=== PATIENT | female | born 1985 | race African-American/Black ===

== ENCOUNTER 2017-10-26 19:51 | Inpatient (IN) | payer OTHER ==
[2017-10-26] MEDS: ELECTROLYTE-148 SOLN 1,000 ML IV SCH (21:00)
[2017-10-26 21:20] LABS: BASO % 0.2 % (0-2.0); EOS % 0.3 % (0-4.5); HEMATOCRIT 35.2 % (32.4-45.2); HEMOGLOBIN 11.7 GM/dL (10.7-15.3); LYMPH % 28.3 % (8-40); MCH 30.5 pg (25.7-33.7); MCHC 33.1 g/dl (32.0-36.0); MEAN CELL VOLUME 92.3 fl (80-96); MEAN PLT VOLUME 10.6 fl (7.5-11.1); MONO % 5.6 % (3.8-10.2); NEUT % 65.6 % (42.8-82.8); PLATELET COUNT 190 K/MM3 (134-434); RBC 3.82 M/mm3 (3.60-5.2); RDW 14.3 % (11.6-15.6); WHITE BLOOD COUNT 8.7 K/mm3 (4.0-10.0)
[2017-10-26 21:21] LABS: URINE APPEARANCE CLEAR; URINE BILIRUBIN NEGATIVE (NEGATIVE); URINE BLOOD NEGATIVE (NEGATIVE); URINE COLOR STRAW; URINE GLUCOSE (UA) NEGATIVE (NEGATIVE); URINE KETONE NEGATIVE (NEGATIVE); URINE LEUK ESTERASE NEGATIVE (NEGATIVE); URINE NITRITE NEGATIVE (NEGATIVE); URINE PROTEIN NEGATIVE (NEGATIVE); URINE UROBILINOGEN NEGATIVE mg/dL (0.2-1.0)
[2017-10-26 21:30] VITALS: BMI 31.4
[2017-10-26 21:37] LABS: INR 0.95 (0.82-1.09); PROTHROMBIN TIME (PATIENT) 10.7 SEC (9.98-11.88)
[2017-10-26 21:40] LABS: ACTIVATED PTT 19.2 SECONDS (26.9-34.4)
[2017-10-26] MEDS ORDERED: DINOPROSTONE 10 MG VAGINAL SUPPOSITORY VG ONE (22:00)
[2017-10-26 22:19] LABS: ALBUMIN 2.8 g/dl (3.4-5.0); ANION GAP 11 (8-16); BILIRUBIN,TOTAL 0.1 mg/dL (0.2-1.0); BLOOD UREA NITROGEN 7 mg/dL (7-18); CALCIUM 8.3 mg/dL (8.5-10.1); CHLORIDE 108 mmol/L (98-107); CO2 23 mmol/L (21-32); CREATININE 0.7 mg/dL (0.55-1.02); GLUCOSE,RANDOM 91 mg/dL (74-106); POTASSIUM 3.6 mmol/L (3.5-5.1); SGOT/AST 13 U/L (15-37); SGPT/ALT 16 U/L (12-78); SODIUM 142 mmol/L (136-145); TOT PROT 6.3 g/dl (6.4-8.2); URIC ACID 4.1 mg/dL (2.6-7.2)
[2017-10-26 22:20] LABS: ALK PHOS 181 U/L (45-117)
--- NOTE | 2017-10-26 22:46 | HP ---
Past Medical History - Primary Care Physician PCP:: Moisés Otto - Admission Chief Complaint: 32yo P0 with at EGA 39w5d admitted for labor induction due to oligohydramnios. History of Present Illness: Fibroids 9-10cm cm and 3 cm Graves Dz Zika travel- in [place] (2x this ) History Source: Patient, Medical Record Limitations to Obtaining History: No Limitations - Past Medical History FARM GENERAL MANAGER: No: Alzheimer's, CVA, Dementia, Migraine, Multiple Sclerosis, Peripheral Neuropathy, Parkinson's, Seizure, Syncope, TIA, Vertigo, Other Cardiovascular: No: AFIB, Aneurysm, Aortic Insufficiency, Aortic Stenosis, CAD, CHF, Deep Vein Thrombosis, HTN, Hyperlipdemia, [place], Mitral Insufficiency, Mitral Stenosis, Murmur, Pulmonary Hypertension, Other Pulmonary: No: Asthma, Bronchitis, Cancer, COPD, O2 Dependent, Pneumonia, Previously Intubated, Pulmonary Embolus, Pulmonary Fibrosis, Sleep Apnea, Other Gastrointestinal: No: Ascites, Cancer, Constipation, Crohn's Disease, Diverticulitis, Diverticulosis, Esophageal Varices, Gastritis, GERD, GI Bleed, Hemorrhoids, Hiatal Hernia, Inflamatory Bowel Disease, Irritable Bowel Disease, Pancreatitis, Peptic Ulcer Disease, Ulcerative Colitis, Other Hepatobiliary: No: Cirrhosis, Cholelithiasis, Cholecystitis, Choledocholithiasis , Hepatitis A, Hepatitis B, Hepatitis C, Other Renal/: No: Renal Failure, Renal Inusuff, BPH, Cancer, Hematuria, Hemodialysis , Neurogenic Bladder, Renal Calculi, UTI, Other Reproductive: Yes: Fibroids (VERY LARGE) ...: 1 ...Para: 0 ...Term: 0 ...: 0 ...Spon : 0 ...Induced : 0 ...Multiple Gestation: 0 ...LMP: 01/27/17 ... Weeks Gestation by Dates: 38.6 ...EDC by Dates: 11/03/17 ...EDC by Sono: 10/28/17 Heme/Onc: No: Anemia, B12 Deficiency, Bleeding Disorder, Cancer, Current Chemotherapy, Current Radiation Therapy, Hemochromatosis, Hypercoaguable State, Myeloproliferative Synd, Sickle Cell Disease, Sickle Cell Trait, Thrombocytopenia, Other Infectious Disease: No: AIDS, C-Diff, Herpes Zoster, HIV, MRSA, STD's, Tuberculosis, VREF, Other Psych: No: Addictions, Anxiety, Bipolar, Depression, Panic, Psychosis, Schizophrenia, Other Musculoskeletal: No: Bursitis, Chronic low back pain, Hemiparesis, Hemiplegia, Osteoarthritis, Paraplegia, Other Rheumatology: No: Fibromyalgia, Gout, Lupus, Rheumatoid Arthritis, Sarcoidosis, Vasculitis, Other ENT: No: Allergic Rhinitis, Sinusitis, Other Endocrine: Yes: Hyperthyroidism (Graves Dz) Dermatology: No: Basal Cell, Cellulitis, Eczema, Melanoma, Psoriasis, Squamous Cell, Other - Past Surgical History Past Surgical History: Yes: None Hx Myomectomy: No Hx Transabdominal Cerclage: No - Smoking History Smoking history: Never smoked Have you smoked in the past 12 months: No - Alcohol/Substance Use Hx Alcohol Use: No History of Substance Use: reports: None - Social History ADL: Independent History of Recent Travel: No Home Medications - Allergies Allergies/Adverse Reactions: Allergies Allergy/AdvReac Type Severity Reaction Status Date / Time No Known Allergies Allergy Verified 10/26/17 20:46 - Home Medications Home Medications: Ambulatory Orders Saul/D3/Mag11/Zinc/Metal Bonding Crib Attendant/Sudhir/Bor [Caltrate 600+D Plus Tablet] 1 each PO DAILY Vitamins (Sjr) - 1 tab PO DAILY 10/26/17 Family Disease History - Family Disease History Family Disease History: Heart Disease: Father, Other: Mother (HTN) Review of Systems - Review of Systems Constitutional: reports: No Symptoms Eyes: reports: No Symptoms HENT: reports: No Symptoms Neck: reports: No Symptoms Cardiovascular: reports: No Symptoms Respiratory: reports: No Symptoms Gastrointestinal: reports: No Symptoms Genitourinary: reports: No Symptoms Breasts: reports: No Symptoms Reported Musculoskeletal: reports: No Symptoms Integumentary: reports: No Symptoms Neurological: reports: No Symptoms Endocrine: reports: No Symptoms Hematology/Lymphatic: reports: No Symptoms Psychiatric: reports: No Symptoms Pain Intensity: 0 Physical Exam - Maternity Vital Signs: Vital Signs Temperature 98.3 F 10/26/17 22:00 Pulse Rate 94 H 10/26/17 22:00 Respiratory Rate 20 10/26/17 22:00 Blood Pressure 132/83 10/26/17 22:00 O2 Sat by Pulse Oximetry (%) Constitutional: Yes: Well Nourished, No Distress, Calm Eyes: Yes: WNL, Conjunctiva Clear HENT: Yes: WNL, Atraumatic, Normocephalic Neck: Yes: WNL, Supple, Trachea Midline Cardiovascular: Yes: WNL, Regular Rate and Rhythm Lungs: Clear to auscultation, Normal air movement Breast(s): Yes: WNL - Abdominal Exam/OB Fundal Height: 40 Number of Fetuses: Single Presentation: Vertex Contractions: Yes Regularity: Irregular Intensity: Unaware Monitor Mode: External Heart Rate (range): 135 Heart Rate Location: Midline Category: I Accelerations: Uniform Decelerations: None - Vaginal Exam/OB Vaginal Bleediing: No Speculum Exam: No Dilatation (cm): 0 Effacement (%): 0 Amniotic Membrane Status: Intact Presentation: Vertex/Position Station: -4 - Physical Exam Musculoskeletal: Yes: WNL Extremities: Yes: WNL Edema: No Integumentary: Yes: WNL Deep Tendon Reflex Grade: Normal +2 ...Motor Strength: WNL Psychiatric: Yes: WNL, Alert, Oriented - Labs Lab Results: CBC, BMP 10/26/17 21:05 10/26/17 21:05 Hemorrhage Risk Assessment - Risk Factors Medium Risk Factors: Yes: Large myomas High Risk Factors: Yes: None Risk Score: 1 Risk Level: Medium Risk Imaging - Results Ultrasound: Report Reviewed Assessment/Plan 32yo P0 with at EGA 39w5d admitted for labor induction. Pt is not in labor. Fetus with Category I tracing. Adequate gynecoid pelvimetry on exam. We had land discussion re: risks, benefits, and alternatives of labor induction. I explained the options of expectant management awaiting spontaneous labor, induction of labor, and elective section. The risks of uterine tachysystole, distress, uterine rupture, need for emergency C/S, hemorrhage, infection, scarring, etc. were discussed. Much higher risks of C/S, hemorrhage, hysterectomy, dustress, etc due to very large fibroids were explained. We also discussed the risks of meconium aspiration, shoulder dystocia , and anesthesia options. The pt requested to proceed with induction. We discussed the alternative methods of induction with Cervidil, Cytotec, Folley ballon, and pitocin. The pt prefers Cervidil followed by pitocin, if needed.
[2017-10-27] MEDS: ELECTROLYTE-148 SOLN 1,000 ML IV SCH ×2 (02:25→10:06)
[2017-10-27] MEDS ORDERED: OXYTOCIN 15 UNITS/ LR 250 ML 15 UNIT/250 ML INFUS.BAG IVPB ONE (09:35)
[2017-10-27] MEDS ORDERED: OXYTOCIN 30 UNITS in 0.9% NS 30 UNIT/500 ML INFUS.BAG IVPB SCH (10:00)
--- NOTE | 2017-10-27 14:54 | PN ---
Ante-Partal Exam - Subjective Subjective: Patient reports pain, pressure with contractions Vital Signs: Vital Signs Temperature 98.9 F 10/27/17 10:00 Pulse Rate 91 H 10/27/17 13:00 Respiratory Rate 18 10/27/17 13:00 Blood Pressure 141/85 10/27/17 13:00 O2 Sat by Pulse Oximetry (%) Bleeding: No Headache: No Visual changes: No Right upper quadrant pain: No - Contractions Contractions: Yes Regularity: Regular Intensity: Mod/Strong Monitor Mode: External - Exam during Labor Heart Rate: 120 Variability: Moderate Category: I Monitor Accelerations: Present Monitor Decelerations: None Exam: Vaginal Dilatation (cm): 0 Effacement (%): long Amniotic Membrane Status: Intact Station: -4 - Intrapartum Hemorrhage Risk Medium Risk Factors: None High Risk Factors: None Risk Score: 0 Risk Level: Low Risk - Assessment/Plan Assessment/Plan: 32 yo IOL, oligohydramnios 1. Currently on pitocin of 7, yocasta 2-3 minutes apart. No cervical change , no change in station. Reviewed options of continuing with pitocin or primary delivery. Patient desires to continue with induction 2. GBS positive 3. Desires IV medication for pain control 4. Will continue expectant management
[2017-10-27] MEDS ORDERED: PROMETHAZINE HCL 25 MG/1 ML VIAL IVPB ONE (15:00)
[2017-10-27] MEDS ORDERED: PROMETHAZINE HCL 25 MG/1 ML VIAL IVPUSH ONE (15:00)
[2017-10-27] MEDS ORDERED: BUTORPHANOL TARTRATE 1 MG/ML VIAL IVPB ONE (15:00)
[2017-10-27] MEDS ORDERED: ONDANSETRON 4 MG/2 ML VIAL IVPUSH PRN (17:08)
[2017-10-27] MEDS ORDERED: morphine SULFATE/Preservative Free 0.5 MG/ML (1cc Syringe) ONE (17:36)
--- NOTE | 2017-10-27 17:41 | PN ---
Progress Note (short form) - Note Progress Note: Patient examined, found to be closed / long / high Reviewed unchanged exam over 8 hours and on pitocin without any change. Patient requested delivery via delivery. Discussed risks including but not limited to infection, bleeding requiring transfusion and damage to surrounding organs such as the bowel or bladder. Discussed risk of injury to infant. Discussed risk of wound infection and separation. Discussed need for planning of future children and possibility of abnormal placentation. All questions answered. Patient expressed understanding. Nursing and OR staff notified. Will proceed to OR
[2017-10-27] MEDS ORDERED: CITRIC ACID/SODIUM CITRATE 30 ML UNIT-DOSE CUP PO ONE (17:45)
[2017-10-27] MEDS ORDERED: ePHEDrine SULFATE 50 MG/1 ML AMPULE ONE (17:55)
[2017-10-27] MEDS ORDERED: PHENYLEPHRINE HCL 10 MG/1 ML SINGLE DOSE VIAL ONE (17:56)
[2017-10-27] MEDS ORDERED: SODIUM CHLORIDE 0.9% P/F 10 ML VIAL IJ ONE (17:57)
[2017-10-27] MEDS ORDERED: ceFAZolin SODIUM 1 GM VIAL ONE (17:57)
[2017-10-27] MEDS ORDERED: KETOROLAC TROMETHAMINE 30 MG/1 ML VIAL ONE (18:00)
[2017-10-27] MEDS: DEXTROSE 5%-LACTATED RINGERS 1,000 ML IV SCH (18:29)
[2017-10-27] MEDS ORDERED: BENZOCAINE 28 GM HEMORRHOIDAL OINTMENT TP PRN (19:36)
[2017-10-27] MEDS ORDERED: WITCH HAZEL 50% (TUCKS) 40 PAD/JAR PAD TP PRN (19:36)
[2017-10-27] MEDS ORDERED: oxyCODONE HCL 5 MG TABLET PO PRN ×2 (19:36)
[2017-10-27] MEDS ORDERED: IBUPROFEN 800 MG/8 ML IJ IVPB PRN (19:36)
[2017-10-27] MEDS ORDERED: SENNOSIDES/DOCUSATE COMBO (SENNA PLUS) TABLET (UD) PO PRN (19:36)
[2017-10-27] MEDS ORDERED: BENZOCAINE 20% 57 GM BOTTLE TP PRN (19:36)
[2017-10-27] MEDS ORDERED: METHYLERGONOVINE MALEATE 0.2 MG/1 ML AMP IM PRN (19:36)
--- NOTE | 2017-10-27 19:36 | PN ---
Delivery - Delivery Type of Anesthesia: Spinal Episiotomy/Laceration: None EBL (cc): 600 Delivery, Single - Stages of Labor Date 1st Stage Initiatied: 10/27/17 Time 1st Stage Initiated: 14:00 Date of Delivery: 10/27/17 Time of Delivery: 18:13 Time Placenta Delivered: 18:14 - Condition of Compliance Associate/Extrusion Process Operator Present: Yes Name: Danielle Corbin Gender: Male Weight: 7 lb 2 oz Position: Right, OT Total Hours ROM (Hrs/Mins): 2 min - 1 Minute Total Score: 9 5 Minutes Total Score: 9 - Feeding Plan Initial Plan: Elected not to breastfeed exclusively throughout hospitalization Remarks - Remarks Remarks: Surgeon: Jackson Assist: Kati Anesthesia: Kishore Findings: Male , ROT position, 9,9; wt 7 lb 2 oz; Large subserosal anterior fibroid, 10 cm; normal fallopian tubes and ovary bilaterally IVF: 700 UOP: 150 Dictation: [id number]
[2017-10-27] MEDS: OXYTOCIN 20 UNITS in 0.9% NS 20 UNIT/1,000 ML INFUS.BAG IV SCH (19:58)
[2017-10-27] MEDS ORDERED: OXYTOCIN 20 UNITS in 0.9% NS 20 UNIT/1,000 ML INFUS.BAG IV ONE (20:14)
[2017-10-27] MEDS: FERROUS SO4 325 MG TABLET (FP) PO SCH (22:00)
[2017-10-28] MEDS: ELECTROLYTE-148 SOLN 1,000 ML IV SCH (03:38)
[2017-10-28] MEDS: DEXTROSE 5%-LACTATED RINGERS 1,000 ML IV SCH (03:39)
[2017-10-28] MEDS: OXYTOCIN 20 UNITS in 0.9% NS 20 UNIT/1,000 ML INFUS.BAG IV SCH (03:51)
--- NOTE | 2017-10-28 07:16 | PN ---
Post Progress Note - Subjective Subjective: Patient without acute complaints. Currently NPO No voiding, fragoso in place draining clear fluid No ambulation or flatus yet. Denies fevers or chills. Pain well controlled. Type of Delivery: Primary C/S Vital Signs: Vital Signs Temperature 98.6 F 10/28/17 06:00 Pulse Rate 98 H 10/28/17 06:00 Respiratory Rate 18 10/28/17 06:00 Blood Pressure 125/73 10/28/17 06:00 O2 Sat by Pulse Oximetry (%) 100 10/27/17 19:52 Breast Exam: Yes: Engorged Uterus: Yes: Fundus Firm, Fundus below umbilicus Incision: Yes: Dressing dry and intact. No: Oozing Abdomen/GI: Yes: Abdomen soft, Tender (mild incisional), Passing flatus, Tolerating PO. No: Abdominal Distention Lochia: Yes: Serosa Extremities: Yes: Calves non-tender - Labs Labs: CBC WBC 8.7 K/mm3 (4.0-10.0) 10/26/17 21:05 RBC 3.82 M/mm3 (3.60-5.2) 10/26/17 21:05 Hgb 11.7 GM/dL (10.7-15.3) 10/26/17 21:05 Hct 35.2 % (32.4-45.2) 10/26/17 21:05 MCV 92.3 fl (80-96) 10/26/17 21:05 MCH 30.5 pg (25.7-33.7) 10/26/17 21:05 MCHC 33.1 g/dl (32.0-36.0) 10/26/17 21:05 RDW 14.3 % (11.6-15.6) 10/26/17 21:05 Plt Count 190 K/MM3 (134-434) 10/26/17 21:05 MPV 10.6 fl (7.5-11.1) 10/26/17 21:05 Neutrophils % 65.6 % (42.8-82.8) 10/26/17 21:05 Lymphocytes % 28.3 % (8-40) 10/26/17 21:05 Monocytes % 5.6 % (3.8-10.2) 10/26/17 21:05 Eosinophils % 0.3 % (0-4.5) 10/26/17 21:05 Basophils % 0.2 % (0-2.0) 10/26/17 21:05 Assessment/Plan 32 yo POD # 1 s/p primary CD, afebrile, vital signs stable, doing well 1. Continue routine postoperative care. 2. Follow up AM CBC 3. Rh positive status, no rhogam indicated. 4. Encourage ambulation and incentive spirometer use 5. Continue oral pain medication 6. Anticipate discharge home postoperative day #3 or #4
[2017-10-28 07:49] LABS: BASO % 0.2 % (0-2.0); EOS % 0.2 % (0-4.5); HEMATOCRIT 33.7 % (32.4-45.2); LYMPH % 18.9 % (8-40); MCH 30.3 pg (25.7-33.7); MCHC 32.7 g/dl (32.0-36.0); MEAN CELL VOLUME 92.8 fl (80-96); MONO % 6.9 % (3.8-10.2); NEUT % 73.8 % (42.8-82.8); PLATELET COUNT 155 K/MM3 (134-434); RBC 3.63 M/mm3 (3.60-5.2); RDW 14.4 % (11.6-15.6); WHITE BLOOD COUNT 9.4 K/mm3 (4.0-10.0)
--- NOTE | 2017-10-28 08:28 | OP ---
DATE OF OPERATION: 10/27/2017 PREOPERATIVE DIAGNOSIS: Intrauterine at 39 weeks, admitted for oligohydramnios, induction of labor, failed induction of labor, fibroid uterus. POSTOPERATIVE DIAGNOSIS: Intrauterine at 39 weeks, admitted for oligohydramnios, induction of labor, failed induction of labor, fibroid uterus. SURGEON: Anaid Paz MD HOSTESS CASHIER: Lesly Parikh MD ANESTHESIOLOGIST: Migue Novak MD ANESTHESIA: Spinal. FINDINGS: A male in ROT position, Apgars 9 and 9, weight 7 pounds 2 pounds. A large subserosal anterior fibroid, approximately 10 cm. Normal fallopian tubes and ovaries bilaterally. INTRAVENOUS FLUIDS GIVEN: 700 mL. URINE OUTPUT: 150 ESTIMATED BLOOD LOSS: 600 INDICATIONS: The patient is a 32-year-old 1, para 0, at 39 weeks, admitted for induction of labor for oligohydramnios. She is status post Cervidil and Pitocin. She was found to be long, closed, posterior for approximately 6 hours after induction of labor, and she requested a primary . She was counseled regarding the risks, benefits, alternatives and complications of the procedure, including infection, bleeding, damage to surrounding organs, such as bowel, bladder and ureter. She expressed understanding and was brought to the operating room. DESCRIPTION OF PROCEDURE: When anesthesia was found to be adequate, the patient was prepped and draped in the normal sterile fashion and placed in the dorsal supine position with a leftward tilt. An approximately 11-cm skin incision was made with a knife and carried down to the underlying rectus muscle using Bovie electrocautery. The fascia was nicked in the midline and extended laterally using Gallegos scissors. The inferior portion of the fascial incision was tented up using Raymundo clamps and resected underlying rectus muscles using the Gallegos scissors. Attention was brought to the superior portion where in a similar fashion it was tented up using Raymundo clamps and dissected off the underlying rectus muscles. The rectus muscles were separate bluntly in the midline. The peritoneum was entered sharply and extended superiorly and inferiorly using Metzenbaum scissors. The uterus was found to be dextrorotated. It was corrected and the vesicouterine peritoneum was identified, entered sharply, and a bladder flap was created digitally. A hysterotomy was performed and extended laterally using bandage scissors. The infant's head was brought to the hysterotomy site. Amniotomy was performed. Clear fluid was noted. The infant's head was brought to hysterotomy site and was delivered, followed by shoulders and body without difficulty. The cord was clamped and cut, and the infant was handed to awaiting NICU staff. The placenta was extracted. The uterus was cleared of all clot and debris. The uterus was closed using 0 Biosyn in running layers; the second was an imbricating layer. It was noted that there was a right extension of the right aspect of the hysterotomy extended was extended. Examination of the uterus revealed a large subserosal anterior fundal fibroid and bilateral tubes and ovaries were noted to be hemostatic. The vesicouterine peritoneum was reapproximated using 0 Biosyn in running fashion. The peritoneum was closed using 2-0 Biosyn in running fashion. The muscles were reapproximated using 0 Vicryl in interrupted fashion. The fascia was closed using 0 Vicryl in a running fashion. The skin was reapproximated using 3-0 Biosyn. The patient tolerated the procedure well. Estimated blood loss was 600 mL. The patient was brought to the recovery room in stable condition. Aline [id number]
[2017-10-28] MEDS: FERROUS SO4 325 MG TABLET (FP) PO SCH ×2 (09:15→21:12)
[2017-10-28] MEDS: ENOXAPARIN NA (PORCINE) 40 MG/0.4 ML DISP.SYRIN SQ SCH (09:16)
--- NOTE | 2017-10-28 12:08 | PN ---
Progress Note (short form) - Note Progress Note: Pt day #1 s/p csection. Doing well, no complaints today. Continue current treatment
[2017-10-28] MEDS: SIMETHICONE 80 MG TAB.CHEW (FP) PO PRN (14:49)
[2017-10-28] MEDS: IBUPROFEN 600 MG TABLET (FP) PO PRN (14:49)
[2017-10-28] MEDS: ACETAMINOPHEN 325 MG TABLET (FP) PO PRN (14:49)
[2017-10-28] MEDS ORDERED: BISACODYL 10 MG SUPP.RECT RC PRN (19:36)
[2017-10-29] MEDS: SIMETHICONE 80 MG TAB.CHEW (FP) PO PRN ×2 (02:45→13:10)
[2017-10-29] MEDS: IBUPROFEN 600 MG TABLET (FP) PO PRN ×2 (02:45→13:11)
[2017-10-29] MEDS: ACETAMINOPHEN 325 MG TABLET (FP) PO PRN ×2 (02:52→13:10)
--- NOTE | 2017-10-29 07:46 | PN ---
Progress Note (short form) - Note Progress Note: pod 2 s/p c/s ,doing well, ambulating CBC, BMP 10/28/17 06:56 10/26/17 21:05 Last Vital Signs Temp Pulse Resp BP Pulse Ox 98.4 F 100 H 18 121/70 100 10/28/17 22:00 10/28/17 22:00 10/28/17 22:00 10/28/17 22:00 10/27/17 19:52 abdomen soft, no distension, no cva incision dry, clean no calf tenderness plan ambulate cbc in am
[2017-10-29] MEDS: FERROUS SO4 325 MG TABLET (FP) PO SCH ×2 (09:09→23:03)
[2017-10-29] MEDS: ENOXAPARIN NA (PORCINE) 40 MG/0.4 ML DISP.SYRIN SQ SCH (09:09)
[2017-10-30] MEDS: SIMETHICONE 80 MG TAB.CHEW (FP) PO PRN (02:06)
[2017-10-30] MEDS: IBUPROFEN 600 MG TABLET (FP) PO PRN (02:06)
[2017-10-30] MEDS: ACETAMINOPHEN 325 MG TABLET (FP) PO PRN (02:06)
[2017-10-30 08:58] LABS: BASO % 0.1 % (0-2.0); EOS % 0.8 % (0-4.5); HEMATOCRIT 32.3 % (32.4-45.2); HEMOGLOBIN 10.5 GM/dL (10.7-15.3); LYMPH % 25.6 % (8-40); MCH 30.3 pg (25.7-33.7); MCHC 32.6 g/dl (32.0-36.0); MEAN CELL VOLUME 93.1 fl (80-96); MEAN PLT VOLUME 9.8 fl (7.5-11.1); MONO % 5.5 % (3.8-10.2); PLATELET COUNT 195 K/MM3 (134-434); RBC 3.47 M/mm3 (3.60-5.2); RDW 14.4 % (11.6-15.6); WHITE BLOOD COUNT 8.6 K/mm3 (4.0-10.0)
[2017-10-30] MEDS: FERROUS SO4 325 MG TABLET (FP) PO SCH (09:22)
[2017-10-30] MEDS: ENOXAPARIN NA (PORCINE) 40 MG/0.4 ML DISP.SYRIN SQ SCH (09:22)
--- NOTE | 2017-10-30 11:03 | DS ---
Physical Exam-INSIDE SALES TERRITORY MANAGER Vital Signs: Vital Signs Temperature 99 F 10/30/17 05:39 Pulse Rate 102 H 10/30/17 05:39 Respiratory Rate 20 10/30/17 05:39 Blood Pressure 122/77 10/30/17 05:39 O2 Sat by Pulse Oximetry (%) 100 10/27/17 19:52 Constitutional: Yes: Well Nourished, No Distress, Calm Eyes: Yes: WNL, Conjunctiva Clear HENT: Yes: WNL, Atraumatic, Normocephalic Neck: Yes: WNL, Supple, Trachea Midline Cardiovascular: Yes: WNL, Regular Rate and Rhythm Respiratory: Yes: WNL, Regular, CTA Bilaterally Gastrointestinal: Yes: WNL, Normal Bowel Sounds, Soft ...Rectal Exam: Yes: Deferred Renal/: Yes: WNL ....Post : Yes: Uterus firm, Uterus non-tender, Slight lochia rubra Breast(s): Yes: WNL Musculoskeletal: Yes: WNL Extremities: Yes: WNL Edema: Yes Edema: LLE: Trace, RLE: Trace Integumentary: Yes: WNL Wound/Incision: Yes: Clean/Dry, Well Approximated, Sutures Intact, Steri Strips , Open to air Neurological: Yes: WNL, Alert, Oriented ...Motor Strength: WNL Psychiatric: Yes: WNL, Alert, Oriented Labs: CBC, BMP 10/30/17 08:00 10/26/17 21:05 Delivery - Delivery Section: Primary, Low Flap Transverse Type of Anesthesia: Spinal Episiotomy/Laceration: None EBL (cc): 600 Delivery, Single - Stages of Labor Date 1st Stage Initiatied: 10/27/17 Time 1st Stage Initiated: 14:00 Date of Delivery: 10/27/17 Time of Delivery: 18:13 Time Placenta Delivered: 18:14 Placenta: Yes: Manual Removal, Normal Configuration - Condition of Infant Harness Installer/Business Operations Analyst Present: Yes Name: Danielle Corbin Infant Gender: Male Weight: 3.232 kg Position: Right, OT Total Hours ROM (Hrs/Mins): 2 min - 1 Minute Total Score: 9 5 Minutes Total Score: 9 - Feeding Plan Initial Plan: Elected not to breastfeed exclusively throughout hospitalization Benefits of Exclusively reinforced: Yes Remarks - Remarks Remarks: Large subserosal fibroid Discharge Summary Reason For Visit: CEVIDIL INDUCTION Uterine fibroid Oligohydramnios Failed induction of labor Procedures: Principal: Primary LT C/S Condition: Good - Instructions Diet, Activity, Other Instructions: Physical activity Resume your normal everyday activity as tolerated no heavy lifting or exercise until seen by your surgeon. You may walk unlimited johnnie of and climb stairs. You may resume driving the car when you feel safe and comfortable behind the wheel. No sexual activity as instructed. Wound care If you have a bandage, leave it on, and keep dry for 48-72 hours. After that time discard the outer bandage. If they are tapes on the skin under the out of bandage leave them in place. They will peel off in the next 7 to 10 days. Do Not Peel them off. You may shower the day after surgery. If there are tapes present on the skin, you may shower over them. Diet There are no dietary restrictions. Eat healthy, high-fiber foods. Drink 6 to 8 glasses of liquid each day. This will assist in keeping your bowels are regular. Pain management You may take Tylenol or acetaminophen or Ibuprofen (for example, Motrin, Advil etc.) from my pain prescription medication is ordered should be taken as prescribed for moderate to severe pain. Call MD for any of the following: Severe pain not relieved by medication Fever of 101 or higher Excessive bleeding or drainage on dressing Inability to urinate Referrals: Anaid Paz MD [Staff Physician] - Disposition: HOME - Home Medications Comprehensive Discharge Medication List: Ambulatory Orders Saul/D3/Mag11/Zinc/Train Station Server/Sudhir/Bor [Caltrate 600+D Plus Tablet] 1 each PO DAILY Vitamins (Sjr) - 1 tab PO DAILY 10/26/17
[2017-10-30 12:23] VITALS: BP 123/85; PULSE 82; TEMP 98.2
[2017-10-31] MEDS ORDERED: PATIENT'S OWN MEDICATION (NON-FORMULARY) (Prenatal Vitamins (Sjr) - [Prenatal Vitamins (Sj PO SCH (10:00)
== END 2017-10-30 13:00 | disposition home or self-care (01) | DRG 540 ==
LOC: JLDR 19:51 → J3W 10-27 20:25
PROVIDERS: ADMIT Obstetrics & Gynecology; ATTEND Obstetrics & Gynecology
PROC: 10D00Z1 Extraction of Products of Conception, Low, Open Approach (ICD-10-PCS; principal; 2017-10-27)
DX: O41.03X0 Oligohydramnios, third trimester, not applicable or unspecified (principal); O61.0 Failed medical induction of labor; O34.13 Maternal care for benign tumor of corpus uteri, third trimester; D25.2 Subserosal leiomyoma of uterus; Z3A.39 39 weeks gestation of pregnancy; Z37.0 Single live birth
CPT/HCPCS: 36415; 80053; 81003; 84550; 85025; 85610; 85730; 86593; 86850; 86900; 86901; 94010

== ENCOUNTER 2018-05-20 14:18 | Inpatient (IN) | payer OTHER ==
[2018-05-19 16:19] VITALS: BMI 31.6
[2018-05-23] MEDS ORDERED: fentaNYL CITRATE 250 MCG/5 ML VIAL ONE (07:11)
[2018-05-23] MEDS ORDERED: MIDAZOLAM HCL 2 MG/2 ML SINGLE DOSE VIAL ONE ×3 (07:12→07:15)
[2018-05-23] MEDS ORDERED: ROCURONIUM BROMIDE 50 MG/5 ML VIAL ONE ×2 (07:12→08:26)
[2018-05-23] MEDS ORDERED: LIDOCAINE HCL/PF 2% SDV 5ML VIAL ONE (07:12)
[2018-05-23] MEDS ORDERED: SUCCINYLCHOLINE CHLORIDE 200 MG/10 ML VIAL ONE (07:12)
[2018-05-23] MEDS ORDERED: DEXAMETHASONE SOD PHOSPHATE 4 MG/1 ML VIAL ONE (07:12)
[2018-05-23] MEDS ORDERED: PROPOFOL 20 ML ONE ×2 (07:12→08:03)
[2018-05-23] MEDS ORDERED: ROPIVACAINE HCL 0.5% 30ML VIAL ONE (07:13)
[2018-05-23] MEDS ORDERED: DEXAMETHASONE SOD PHOSPHATE/PF 10 MG/ML SDV ONE (07:13)
[2018-05-23] MEDS ORDERED: OXYTOCIN 10 UNITS/ML VIAL ONE (07:44)
--- NOTE | 2018-05-23 07:48 | HP ---
History & Physical Update - History History: No Change - Physical Physical: No Change - Assessment Currently as noted:: 32 yo for abdominal myomectomy - Plan Currently as noted:: Consents reviewed and signed; routine labs reviewed; Ancef clinical sales consultant to OR
[2018-05-23] MEDS ORDERED: VASOPRESSIN 20 UNITS/ML VIAL IV ONE (08:04)
[2018-05-23] MEDS ORDERED: ceFAZolin SODIUM 1 GM VIAL ONE (08:19)
[2018-05-23] MEDS ORDERED: GLYCOPYRROLATE 0.2 MG/1 ML VIAL ONE (09:14)
[2018-05-23] MEDS ORDERED: NEOSTIGMINE METHYLSULFATE 0.5 MG/ML - 10 ML MDV ONE (09:14)
--- NOTE | 2018-05-23 09:50 | OP ---
Operative Note - Note: Operative Date: 05/23/18 Pre-Operative Diagnosis: uterine leiomyoma Operation: open myomectomy via pfannensteil Findings: large >10 cm fundal fibroid Post-Operative Diagnosis: Same as Pre-op Surgeon: Anaid Paz Production Trainer: Moisés Otto Anesthesiologist/SKID WRAPPER: Zurdo Dias Anesthesia: General Specimens Removed: fibroid Estimated Blood Loss (mls): 75 Drains, Volume Out (mls): 100 (clear yellow urine) Fluid Volume Replaced (mls): 850 Operative Report Dictated: Yes
[2018-05-23] MEDS ORDERED: HYDROmorphone *PCA* 10MG/50ML DISP.SYRIN PCA ONE ×2 (10:03→10:20)
[2018-05-23] MEDS ORDERED: ONDANSETRON 4 MG/2 ML VIAL IVPUSH PRN (10:49)
[2018-05-23] MEDS ORDERED: HYDROmorphone *PCA* 10MG/50ML DISP.SYRIN PCA SCH (11:00)
[2018-05-23] MEDS: ENOXAPARIN NA (PORCINE) 40 MG/0.4 ML DISP.SYRIN SQ SCH (13:04)
[2018-05-23] MEDS: LACTATED RINGERS SOLUTION 1,000 ML IV SCH (17:55)
[2018-05-24] MEDS: LACTATED RINGERS SOLUTION 1,000 ML IV SCH (00:57)
[2018-05-24 09:03] LABS: HEMATOCRIT 36.8 % (32.4-45.2); HEMOGLOBIN 12.2 GM/dL (10.7-15.3); MCH 30.3 pg (25.7-33.7); MCHC 33.1 g/dl (32.0-36.0); MEAN CELL VOLUME 91.5 fl (80-96); MEAN PLT VOLUME 8.2 fl (7.5-11.1); PLATELET COUNT 283 K/MM3 (134-434); RBC 4.03 M/mm3 (3.60-5.2); RDW 13.6 % (11.6-15.6); WHITE BLOOD COUNT 13.3 K/mm3 (4.0-10.0)
[2018-05-24] MEDS: ENOXAPARIN NA (PORCINE) 40 MG/0.4 ML DISP.SYRIN SQ SCH (09:04)
--- NOTE | 2018-05-24 09:08 | PN ---
Progress Note, Physician Chief Complaint: s/p abdominal myomectomy under general anesthesia History of Present Illness: post op day one TAP block and TRAFFIC SAFETY ADMINISTRATOR for post op pain control - Current Medication List Current Medications: Active Medications Acetaminophen (Tylenol -) 650 mg PO Q4H PRN PRN Reason: PAIN LEVEL 1 - 3 Enoxaparin Sodium (Lovenox -) 40 mg SQ DAILY [facility] Last Admin: 05/24/18 09:04 Dose: 40 mg Fentanyl (Sublimaze Injection -) 50 mcg IVPUSH [id number] PRN PRN Reason: PAIN-PACU ORDER X 4 DOSES ONLY Hydromorphone HCl (Dilaudid Plywood Stock Grader -) 10 mg TRAFFIC SAFETY ADMINISTRATOR TRAFFIC SAFETY ADMINISTRATOR [facility]; Protocol Stop: 05/26/18 10:49 Lactated Ringer's (Lactated Ringers Solution) 1,000 mls @ 125 mls/hr IV ASDIR [facility] Last Admin: 05/24/18 00:57 Dose: 125 mls/hr Ondansetron HCl (Zofran Injection) 4 mg IVPUSH Q6H PRN PRN Reason: NAUSEA AND/OR VOMITING Last Admin: 05/23/18 21:58 Dose: 4 mg Oxycodone HCl (Roxicodone -) 5 mg PO Q4H PRN PRN Reason: PAIN LEVEL 1-5 Oxycodone HCl (Roxicodone -) 10 mg PO Q4H PRN PRN Reason: PAIN LEVEL 7 - 10 - Objective Vital Signs: Vital Signs Temperature 98.8 F 05/24/18 05:59 Pulse Rate 89 05/24/18 05:59 Respiratory Rate 18 05/24/18 05:59 Blood Pressure 125/73 05/24/18 05:59 O2 Sat by Pulse Oximetry (%) 98 05/23/18 12:45 Constitutional: Yes: Well Nourished Cardiovascular: Yes: WNL Respiratory: Yes: WNL Gastrointestinal: Yes: WNL Assessment/Plan doing well, tolerating clears, no adverse effect of anesthetic, will DC TRAFFIC SAFETY ADMINISTRATOR and convert to oral analgesics today
[2018-05-24] MEDS ORDERED: SIMETHICONE 80 MG TAB.CHEW (FP) PO PRN (09:13)
[2018-05-24] MEDS ORDERED: BISACODYL 10 MG SUPP.RECT RC ONE (09:13)
[2018-05-24] MEDS ORDERED: DOCUSATE SODIUM 100 MG CAPSULE (FP) PO PRN (09:13)
--- NOTE | 2018-05-24 09:13 | PN ---
Progress Note (SOAP) - Subjective History of Present Illness: Patient without acute complaints. Tolerating clears without nausea or vomiting Ambulating without issue, using incentive spirometer Denies fevers or chills. Denies chest pain, shortness of breath Pain well controlled with IV medication. Pastor removed this AM, voiding. Denies flatus. - Current Medications Current Medications: Active Medications Acetaminophen (Tylenol -) 650 mg PO Q4H PRN PRN Reason: PAIN LEVEL 1 - 3 Enoxaparin Sodium (Lovenox -) 40 mg SQ DAILY [facility] Last Admin: 05/24/18 09:04 Dose: 40 mg Fentanyl (Sublimaze Injection -) 50 mcg IVPUSH [id number] PRN PRN Reason: PAIN-PACU ORDER X 4 DOSES ONLY Lactated Ringer's (Lactated Ringers Solution) 1,000 mls @ 125 mls/hr IV ASDIR [facility] Last Admin: 05/24/18 00:57 Dose: 125 mls/hr Ondansetron HCl (Zofran Injection) 4 mg IVPUSH Q6H PRN PRN Reason: NAUSEA AND/OR VOMITING Last Admin: 05/23/18 21:58 Dose: 4 mg Oxycodone HCl (Roxicodone -) 5 mg PO Q4H PRN PRN Reason: PAIN LEVEL 1-5 Oxycodone HCl (Roxicodone -) 10 mg PO Q4H PRN PRN Reason: PAIN LEVEL 7 - 10 - Objective Vital Signs: Vital Signs Temperature 98.8 F 05/24/18 05:59 Pulse Rate 89 05/24/18 05:59 Respiratory Rate 18 05/24/18 05:59 Blood Pressure 125/73 05/24/18 05:59 O2 Sat by Pulse Oximetry (%) 98 05/23/18 12:45 Constitutional: Yes: Well Nourished, No Distress, Calm Cardiovascular: Yes: Regular Rate and Rhythm Respiratory: Yes: Regular, CTA Bilaterally Gastrointestinal: Yes: Normal Bowel Sounds, Soft, Distention (mild soft) ....Post : Yes: Uterus non-tender Extremities: Yes: WNL Edema: No Wound/Incision: Yes: Clean/Dry, Sutures Intact, Steri Strips Assessment/Plan 32 yo POD # 1 s/p abdominal myomectomy via pfannensteil incision, afebrile, vital signs stable, doing well 1. Continue routine postoperative care. 2. ID - afebrile, will continue to monitor vital signs. 3. Cardiovascular - No acute issues 4. Pulmonary - Encourage incentive spirometer 5. Hematology - Hemoglobin / Hematocrit pending. Will continue to monitor vital signs of anemia Plan to start lovenox for thromboprophylaxis today 6. Urinary - voiding 7. Gastroinestinal - no signs of ileus at this time Will advance diet Will give colace / dulcolax PRN will give simethicone PRN 8. Gynecology - will follow up pathology 9. Anticipate discharge home POD # 2, pending able to ambulate, adequate pain control and urinating without issue.
[2018-05-24] MEDS ORDERED: ACETAMINOPHEN 325 MG TABLET (FP) PO PRN (09:50)
[2018-05-24] MEDS ORDERED: oxyCODONE HCL 5 MG TABLET PO PRN ×2 (09:50)
[2018-05-24] MEDS ORDERED: IBUPROFEN 600 MG TABLET (FP) PO PRN ×2 (10:47)
--- NOTE | 2018-05-24 10:56 | OP ---
DATE OF OPERATION: 05/23/2018 ATTENDING PHYSICIAN: Anaid Paz MD HEAVY COIL WINDER: Moisés Otto MD PREOPERATIVE DIAGNOSIS: Uterine leiomyomata. POSTOPERATIVE DIAGNOSIS: Uterine leiomyomata. SURGERY: Open myomectomy via Pfannenstiel skin incision. FINDINGS: Large, greater than 10-cm fundal fibroid. ANESTHESIOLOGIST: Zurdo Marcial CRNA ANESTHESIA: General anesthesia. SPECIMENS REMOVED: Fibroid and portion of uterine serosa. ESTIMATED BLOOD LOSS: 75. URINE OUTPUT: 100. FLUIDS GIVEN: 850. INDICATIONS: Patient is a 32-year-old with a history of large fibroid, desiring removal. She was counseled regarding the risks, benefits, alternatives, and complications of the procedure including infection, bleeding, damage to surrounding organs such as bowel, bladder, ureters. She expressed understanding and is brought to the operating room. DESCRIPTION OF PROCEDURE: When the anesthesia was found to be adequate, patient was prepped and draped in the normal sterile fashion, placed in the dorsal supine position. The skin incision was made along the previous surgical scar with a knife and carried down to the underlying fascia using Bovie electrocautery. The fascia was in the midline and extended laterally using the Bovie electrocautery. The inferior portion of the fascial incision was tented up using Raymundo clamps and dissected off of the underlying rectus muscles using Bovie electrocautery. Attention was brought to the superior portion where in a similar fashion it was tented up using Raymundo clamps and dissected off of the underlying rectus muscles. The rectus muscles were in the midline and the peritoneum was entered sharply. The uterus and fibroid were exteriorized. A red rubber Pastor catheter was placed to use as a tourniquet. Approximately 10 ml of a solution of diluted vasopression was injected under the serosa at the area of the incision. The serosal incision was made and a large fibroid was shelled out. The uterine defect was closed in several layers using 2-0 Biosyn. The serosa was reapproximated using 2-0 Biosyn in a baseball stitch. The tourniquet was then removed and reperfusion of the uterus was noted. Good hemostasis was noted. Interceed was placed over the incision. The uterus returned back to the abdominal cavity. Bilateral fallopian tubes and ovaries were noted to be normal appearing. The serosa was closed using 2-0 Vicryl in a running fashion. The fascia was closed using 0 Vicryl in a running fashion. The adipose layer was reapproximated using 2-0 vicryl in an interrupted fashion and the skin was closed using 3-0 Vicryl. Patient tolerated the procedure well. Estimated blood loss was 75 mL. Patient was brought to her room in stable condition. Aline [id number] MTDD
--- NOTE | 2018-05-24 16:07 | PATH ---
Surgical Pathology Report Patient Name: IKE KESSLER [facility]. Rec. #: [id number] /Age/Gender: 1985 (Age: 32) / F Account: [id number] Location: [facility] OBS/GEAR TESTER Taken: 05/23/2018 Received: 05/23/2018 Reported: 05/24/2018 Physicians: Anaid Paz Specimen(s) Received UTERINE MYOMA AND MYOMETRIUM Clinical History Fibroid uterus Final Diagnosis UTERINE MYOMA AND MYOMETRIUM, ABDOMINAL MYOMECTOMY: FRAGMENTS OF HYALINIZED LEIOMYOMA AND MYOMETRIUM (WEIGHT: 223 GRAMS). Electronically Signed Verónica Boateng M.D. Gross Description Received in formalin labeled "uterine myoma and myometrium," is a 223 g, 9.7 x 6.3 x 5.3 cm rubbery nodule. Sectioning reveals herrera-amezquita, degenerative, rubbery parenchyma with whorled architecture. Also received within the same container are 2 herrera-pink portions of soft tissue measuring 5.5 x 3.5 x 0.3 cm in aggregate, possibly consistent with portions of myometrium. Irish Moss Operator sections are submitted in 6 cassettes as follows: 1-5-nodule; 6-brewery representative separately received portions of tissue. 05/23/2018 saudi05/23/2018
[2018-05-25 08:52] VITALS: BP 134/84; PULSE 89; TEMP 98.1
--- NOTE | 2018-05-25 09:26 | PN ---
Progress Note (SOAP) - Subjective History of Present Illness: Patient without acute complaints. Tolerating regular diet without nausea or vomiting Ambulating without issue, using incentive spirometer Denies fevers or chills. Denies chest pain, shortness of breath Pain well controlled with PO medication. +flatus, + BM + voiding - Current Medications Current Medications: Active Medications Acetaminophen (Tylenol -) 650 mg PO Q4H PRN PRN Reason: PAIN LEVEL 1 - 3 Last Admin: 05/24/18 13:41 Dose: 650 mg Docusate Sodium (Colace -) 100 mg PO BID PRN PRN Reason: CONSTIPATION Last Admin: 05/24/18 10:22 Dose: 100 mg Enoxaparin Sodium (Lovenox -) 40 mg SQ DAILY [facility] Last Admin: 05/24/18 09:04 Dose: 40 mg Fentanyl (Sublimaze Injection -) 50 mcg IVPUSH [id number] PRN PRN Reason: PAIN-PACU ORDER X 4 DOSES ONLY Lactated Ringer's (Lactated Ringers Solution) 1,000 mls @ 125 mls/hr IV ASDIR PASTORA Last Admin: 05/24/18 00:57 Dose: 125 mls/hr Ibuprofen (Motrin -) 600 mg PO Q6H PRN PRN Reason: FEVER Last Admin: 05/24/18 12:04 Dose: 600 mg Ibuprofen (Motrin -) 600 mg PO Q6H PRN PRN Reason: PAIN LEVEL 1-5 Ondansetron HCl (Zofran Injection) 4 mg IVPUSH Q6H PRN PRN Reason: NAUSEA AND/OR VOMITING Last Admin: 05/23/18 21:58 Dose: 4 mg Oxycodone HCl (Roxicodone -) 5 mg PO Q4H PRN PRN Reason: PAIN LEVEL 1-5 Last Admin: 05/24/18 13:41 Dose: 5 mg Oxycodone HCl (Roxicodone -) 10 mg PO Q4H PRN PRN Reason: PAIN LEVEL 7 - 10 Simethicone (Mylicon -) 80 mg PO QID PRN PRN Reason: GAS Last Admin: 05/24/18 10:22 Dose: 80 mg - Objective Vital Signs: Vital Signs Temperature 98.1 F 05/25/18 08:50 Pulse Rate 89 05/25/18 08:50 Respiratory Rate 20 05/25/18 08:50 Blood Pressure 134/84 05/25/18 08:50 O2 Sat by Pulse Oximetry (%) 98 05/23/18 12:45 Constitutional: Yes: Well Nourished, No Distress, Calm Cardiovascular: Yes: Regular Rate and Rhythm Respiratory: Yes: Regular, CTA Bilaterally Gastrointestinal: Yes: Normal Bowel Sounds, Soft Genitourinary: Yes: WNL Peripheral Pulses WNL: Yes Wound/Incision: Yes: Clean/Dry, Well Approximated, Steri Strips Neurological: Yes: WNL ...Motor Strength: Yes: WNL Psychiatric: Yes: WNL Labs Lab Results: CBC, BMP 05/24/18 08:42 Assessment/Plan 32 yo POD # 1 s/p abdominal myomectomy via pfannensteil incision, afebrile, vital signs stable, doing well 1. Continue routine postoperative care. 2. ID - afebrile, will continue to monitor vital signs. 3. Cardiovascular - No acute issues 4. Pulmonary - Encourage incentive spirometer 5. Hematology - Hemoglobin / Hematocrit stable. 6. Urinary - voiding 7. Gastroinestinal - no signs of ileus at this time 8. Gynecology - will follow up pathology 9. For DC home today.
--- NOTE | 2018-05-25 09:27 | DS ---
Physical Exam-SOLUTION STRATEGIST Vital Signs: Vital Signs Temperature 98.1 F 05/25/18 08:50 Pulse Rate 89 05/25/18 08:50 Respiratory Rate 20 05/25/18 08:50 Blood Pressure 134/84 05/25/18 08:50 O2 Sat by Pulse Oximetry (%) 98 05/23/18 12:45 Labs: CBC, BMP 05/24/18 08:42 Discharge Summary Reason For Visit: FIBROIDS UTERUS Current Active Problems Fibroid (Acute) S/P myomectomy (Acute) Procedures: Principal: open myomectomy Hospital Course: patient admitted for open myomectomy via pfannensteil incision POD #1 she was voiding, ambulating, tolerating PO, pain well controlled and passing gas. CBC without signs of anemia, vital signs stable she met all criteria for discharge home POD #2 Condition: Good - Instructions Diet, Activity, Other Instructions: [facility] Reference #: [id number] Physical activity Resume your normal everyday activity as tolerated no heavy lifting or exercise until seen by your surgeon. You may walk unlimited johnnie of and climb stairs. You may resume driving the car when you feel safe and comfortable behind the wheel. No sexual activity as instructed. Wound care If you have a bandage, leave it on, and keep dry for 48-72 hours. After that time discard the outer bandage. If they are tapes on the skin under the out of bandage leave them in place. They will peel off in the next 7 to 10 days. Do Not Peel them off. You may shower the day after surgery. If there are tapes present on the skin, you may shower over them. Diet There are no dietary restrictions. Eat healthy, high-fiber foods. Drink 6 to 8 glasses of liquid each day. This will assist in keeping your bowels are regular. Pain management You may take Tylenol or acetaminophen or Ibuprofen (for example, Motrin, Advil etc.) from my pain prescription medication is ordered should be taken as prescribed for moderate to severe pain. Call MD for any of the following: Severe pain not relieved by medication Fever of 101 or higher Excessive bleeding or drainage on dressing Inability to urinate Referrals: Anaid Paz MD [Staff Physician] - Disposition: HOME - Home Medications Comprehensive Discharge Medication List: Ambulatory Orders Ibuprofen [Motrin -] 600 mg PO QID #60 tablet 05/24/18 Oxycodone HCl/Acetaminophen [Percocet 5-325 mg Tablet] 1 tab PO Q6H #20 tablet MDD 4 05/24/18
[2018-05-25] MEDS: ENOXAPARIN NA (PORCINE) 40 MG/0.4 ML DISP.SYRIN SQ SCH (09:34)
== END 2018-05-25 11:05 | disposition home or self-care (01) | DRG 519 ==
LOC: JSAMEDAYSX 14:18 → UNDOADMIN 14:18 → JSAMEDAYSX 05-23 05:05 → EDSTATUS 05-23 07:30 → J3W 05-23 12:43
PROVIDERS: ADMIT Obstetrics & Gynecology; ATTEND Obstetrics & Gynecology
PROC: 0UB90ZZ Excision of Uterus, Open Approach (ICD-10-PCS; principal; 2018-05-23 07:30)
DX: D25.9 Leiomyoma of uterus, unspecified (principal)
CPT/HCPCS: 36415; 85027; 86850; 86900; 86901; 88305-TC; 94760